=== PATIENT | female | born 1980 | race Hispanic/Latino ===

== ENCOUNTER 2024-03-04 14:51 | Emergency (ER) | payer BC ==
[~2024-03-04] VITALS: Ht 170.2 cm; Wt 142.9 kg
[2024-03-04 15:14] LABS: APPEARANCE,URINE CLOUDY (CLEAR); BILIRUBIN,URINE NEGATIVE (NEGATIVE); COLOR,URINE LIGHT-YELLOW (YELLOW); GLUCOSE, URINE (UA) NEGATIVE (NEGATIVE); KETONES,URINE NEGATIVE (NEGATIVE); LEUKOCYTE ESTERASE ,URINE NEGATIVE Leu/uL (NEGATIVE); NITRATE,URINE NEGATIVE (NEGATIVE); PH,URINE 5.5 (5.0-8.0); PROTEIN,URINE 50 mg/dL (NEGATIVE); UROBILINOGEN,URINE 0.2 mg/dL (0.2-1.0)
[2024-03-04 15:22] VITALS: TEMP 101.1
[2024-03-04] MEDS: acetaMINOPHEN 500 MG TABLET PO ONE (15:22)
[2024-03-04] MEDS: 0.9%NACL 1000ML 1,848 ML IV ONE (15:23)
[2024-03-04 15:24] LABS: BASOPHILS # (AUTO) 0.04 K/uL (0.00-0.20); BASOPHILS % (AUTO) 0.8 % (0.0-5.0); EOSINOPHILS # (AUTO) 0.17 K/uL (0.00-0.70); EOSINOPHILS % (AUTO) 3.4 % (0.0-8.0); HEMATOCRIT 40.7 % (36-48); IMMATURE GRANULOCYTE ABSOLUTE 0.07 K/uL (0-1); LYMPHOCYTES # (AUTO) 1.2 K/uL (1.0-4.8); LYMPHOCYTES % (AUTO) 23.2 % (21.0-51.0); MEAN CORPUSCULAR HEMOGLOBIN 30.8 pg (27.0-33.0); MEAN CORPUSCULAR HGB CONC 34.6 g/dL (32.0-36.0); MEAN CORPUSCULAR VOLUME 88.9 fL (79-99); MONOCYTES # (AUTO) 0.2 K/uL (0.1-1.0); MONOCYTES % (AUTO) 3.8 % (3.0-13.0); NEUTROPHILS # (AUTO) 3.4 K/uL (1.8-7.7); NEUTROPHILS % (AUTO) 67.4 % (40.0-77.0); PLATELET COUNT (AUTO) 261 K/uL (130-400); RED BLOOD CELL COUNT(AUTO) 4.58 MIL/uL (4.00-5.50); RED CELL DISTRIBUTION WIDTH 11.5 % (11.0-15.5); WHITE BLOOD COUNT (AUTO) 5.1 K/uL (4.8-10.8)
[2024-03-04 15:27] LABS: BACTERIA,URINE RARE /HPF (None Seen); MUCUS,URINE RARE LPF (None Seen); SQUAMOUS EPITHELIAL CELL,UR FEW /HPF (0-2)
[2024-03-04 15:33] LABS: POTASSIUM 3.7 mmol/L (3.5-5.1)
--- NOTE | 2024-03-04 15:35 | HMCIMG ---
Exam Type: CHEST 1VW Clinical Information: Sepsis Comparison: None Findings: The lungs are clear of infiltrates. The heart is normal in size. The bony and soft tissue structures of the chest are unremarkable. Impression: Clear lungs.
[2024-03-04 15:38] LABS: ALBUMIN 3.5 g/dL (3.5-5.0); BILIRUBIN,TOTAL 0.5 mg/dL (0.2-1.0); TOTAL PROTEIN, SERUM 8.4 g/dL (6.0-8.3)
--- NOTE | 2024-03-04 15:51 | EKG ---
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
[2024-03-04 16:04] LABS: COVID19 (SARS ANTIGEN RAPID) PRESUMPTIVE NEGATIVE (NEGATIVE)
[2024-03-04 16:14] LABS: INFLUENZA TYPE A NEGATIVE FOR TYPE A (NEGATIVE); INFLUENZA TYPE B NEGATIVE FOR TYPE B (NEGATIVE)
[2024-03-04] MEDS ORDERED: AZIT250T9 PO (16:39)
--- NOTE | 2024-03-04 16:40 | ERN ---
General Chief Complaint: Multiple Complaints Stated Complaint: NUMBNESS,GROIN RASH, ITCHY FEET Time Seen by MD: 15:06 Time Seen by Midlevel: 15:08 Source: patient History of Present Illness Initial Comments 43-year-old female who presents to the ED due to numbness of the hands and arms. Patient describes the numbness as tingling, reports a rash to both feet and arms that resolved. States she initiated with a cough and congestion yesterday but denies further associated symptoms. PMHx DM, HTN, hypercholesterolemia Allergies: Coded Allergies: aspirin (Unverified Allergy, Unknown, 03/04/24) Home Meds Active Scripts Azithromycin (Azithromycin) 250 Mg Tablet, 1 TAB PO AD for 5 Days, #6 TAB 0 Refills 2 the first day followed by 1 for days 2-5 Prov:RAUL CAMPOS 03/04/24 Past Medical History Past Medical History: Diabetes-Type II, High Cholesterol, Hypertension, Other Medical History Other: CELLULITIS Past Surgical History: Other ROS Dictation Constitutional: Negative for fever,chills, and weight loss Eyes: Negative for injury, pain,redness, and discharge ENT: Negative for injury,pain or swelling Cardiovascular: Negative for chest pain, palpitations, and edema Respiratory: Positive for cough Negative for shortness of breath, and wheezing, Abdomen/GI: Negative for abdominal pain, nausea, vomiting, diarrhea, and constip ation Back: Negative for injury and pain : Negative for painful urination, bleeding or discharge MS/Extremity: Upper hands and arms numbness in his Negative for injury and deformity Skin: Negative for rash, and discoloration Neuro: Negative for headache, weakness, numbness, tingling, and seizure Psych: Negative for suicide ideation, homicidal ideation, and hallucinations Physical Exam Physical Exam Dictation General: awake, alert, no acute distress Head/Face: Normocephalic, atraumatic Eyes: normal conjunctiva ENT: oral cavity clear, oral mucosa moist Neck: Normal range of motion Cardiovascular: RRR, normal S1/S2 Respiratory: CTAB, no respiratory distress, No rales or wheezes Abdomen: Soft, non-tender, non-distended, normal bowel sounds, no guarding or rebound. Skin: Warm, dry, normal turgor, no rash MS/Extremity: Pulses equal, no cyanosis, neurovascular intact, FROM Neuro: COAx4, GCS 15, normal gait, normal sensory Psych: Normal behavior, mood, and affect normal Results Laboratory and Microbiology Lab and Micro Result Laboratory Tests Test 03/04/24 15:10 03/04/24 15:15 03/04/24 15:36 Urine Color LIGHT-YELLOW (YELLOW) Urine Appearance CLOUDY (CLEAR) H Urine pH 5.5 (5.0-8.0) Urine Specific [place] 1.020 (1.001-1.031) Urine Protein 50 mg/dL (NEGATIVE) H Urine Glucose (UA) NEGATIVE mg/dL (NEGATIVE) Urine Ketones NEGATIVE mg/dL (NEGATIVE) Urine Occult Blood +- (TRACE) (NEGATIVE) H Urine Nitrate NEGATIVE (NEGATIVE) Urine Bilirubin NEGATIVE mg/dL (NEGATIVE) Urine Urobilinogen 0.2 mg/dL (0.2-1.0) Urine Leukocyte Esterase NEGATIVE Laurie/uL Urine RBC 2-5 /HPF (0-1) H Urine WBC 2-5 /HPF (0-1) H Urine Squamous Epithelial Cells FEW /HPF (0-2) Urine Bacteria RARE /HPF (None Seen) White Blood Count 5.1 K/uL (4.8-10.8) Red Blood Count 4.58 MIL/uL (4.00-5.50) Hemoglobin 14.1 g/dL (12.0-16.0) Hematocrit 40.7 % (36-48) Mean Corpuscular Volume 88.9 fL (79-99) Mean Corpuscular Hemoglobin 30.8 pg (27.0-33.0) Mean Corpuscular Hemoglobin Concent 34.6 g/dL (32.0-36.0) Red Cell Distribution Width 11.5 % (11.0-15.5) Platelet Count 261 K/uL (130-400) Mean Platelet Volume 8.9 fL (7.5-10.5) Immature Granulocyte % (Auto) 1.4 % (0-1) H Neutrophils (%) (Auto) 67.4 % (40.0-77.0) Lymphocytes (%) (Auto) 23.2 % (21.0-51.0) Monocytes (%) (Auto) 3.8 % (3.0-13.0) Eosinophils (%) (Auto) 3.4 % (0.0-8.0) Basophils (%) (Auto) 0.8 % (0.0-5.0) Neutrophils # (Auto) 3.4 K/uL (1.8-7.7) Lymphocytes # (Auto) 1.2 K/uL (1.0-4.8) Monocytes # (Auto) 0.2 K/uL (0.1-1.0) Eosinophils # (Auto) 0.17 K/uL (0.00-0.70) Basophils # (Auto) 0.04 K/uL (0.00-0.20) Absolute Immature Granulocyte (auto 0.07 K/uL (0-1) Nucleated Red Blood Cells 0.0 % (0.0-0.19) Sodium Level 138 mmol/L (136-145) Potassium Level 3.7 mmol/L (3.5-5.1) Chloride Level 101 mmol/L (101-111) Carbon Dioxide Level 30 mmol/L (21-32) Blood Urea Nitrogen 13 mg/dL (7-18) Creatinine 1.0 mg/dL (0.5-1.0) Glomerular Filtration Rate Calc 72 mL/min (>90) Random Glucose 120 mg/dL (70-105) H Lactic Acid Level 1.9 mmol/L (0.8-2.5) Total Calcium 9.0 mg/dL (8.5-10.1) Total Bilirubin 0.5 mg/dL (0.2-1.0) Aspartate Amino Transf (AST/SGOT) 21 U/L (10-37) Alanine Aminotransferase (ALT/SGPT) 24 U/L (12-78) Alkaline Phosphatase 138 U/L (50-136) H Total Protein 8.4 g/dL (6.0-8.3) H Albumin 3.5 g/dL (3.5-5.0) Influenza Type A Antigen NEGATIVE FOR TYPE A Influenza Type B Antigen NEGATIVE FOR TYPE B SARS-CoV-2 Antigen (Rapid) PRESUMPTIVE NEGATIVE Labs Reviewed?: Yes EKG/XRAY/US/CT/MRI EKG Comment Date: 03/04/2024 Time: 15:44 Rate:102 EKG interpretation: Tachycardia, no STEMI Reviewed by ED Attending X-RAY Comment REASON: Sepsis ORDERING PHYSICIAN: RAUL CAMPOS PROCEDURE: CXR1VW - CHEST 1VW Exam Type: CHEST 1VW Clinical Information: Sepsis Comparison: None Findings: The lungs are clear of infiltrates. The heart is normal in size. The bony and soft tissue structures of the chest are unremarkable. Impression: Clear lungs. MDM MDM: Differential diagnosis: URI, influenza, viral illness, hyperglycemia Rationale: 43-year-old female who presents to the ED due to numbness of the hands and arms. Patient describes the numbness as tingling, reports a rash to both feet and arms that resolved. States she initiated with a cough and congestion yesterday but denies further associated symptoms. PMHx DM, HTN, hypercholesterolemia Per physical examination patient is in no acute distress, neurologically intact with normal range of motion, sensory neurovascularly intact, and no rash noted. Upon arrival patient triggered sepsis due to fever and elevated heart rate. Patient received IV fluids, and acetaminophen in the ED. labs obtained are nonspecific. UA is negative for urinary tract infection. EKG within normal limits. Based on patient's symptoms and chest x-ray diagnosis URI therefore Z- Fitz prescribed for outpatient treatment. Patient was educated on findings and diagnosis. Advised to follow up with PCP. Return to the ED if any worsening symptoms. Patient verbalized understanding. Patient is stable for discharge. There are no social concerns with this patient. I independently interpreted the test that were performed, results were reviewed by me and considered findings on radiology if ordered. Medical management and examination interpretation discussions were had by me with other qualified healthcare professionals as indicated for the patient's care. ED Course Orders Procedure Category Date Status Time Cbc With Differential LAB 03/04/24 Complete 15:06 Comprehensive LAB 03/04/24 Complete Metabolic Panel 15:06 Urinalysis LAB 03/04/24 Complete W/Microscopic 15:06 Lactic Acid LAB 03/04/24 Complete 15:06 Chest 1vw RAD 03/04/24 Resulted 15:06 Acetaminophen 500mg PHA 03/04/24 Complete Tab (Tylenol 500mg T 15:30 0.9%Nacl 1000ml (Ns PHA 03/04/24 In Process 1000ml) 15:30 Covid19 (Sars Antigen LAB 03/04/24 Complete Rapid) 15:32 12 Lead Ekg Tracing- EKG 03/04/24 Resulted Technical 15:34 Influenza Type A & B, LAB 03/04/24 Complete Rapid 15:36 Current Medications Medications (Trade) Dose Ordered Sig/Jaskaran Route PRN Reason Start Time Stop Time Status Last Admin Dose Admin Acetaminophen (TYLenol 500MG TAB) 1,000 mg ONCE ONCE PO 03/04/24 15:30 03/04/24 15:31 DC 03/04/24 15:22 Sodium Chloride 1,848 ml @ 616 mls/hr ONCE ONCE IV 03/04/24 15:30 03/04/24 18:29 03/04/24 15:23 Vital Signs Date Time Temp Pulse Resp B/P (MAP) Pulse Ox O2 Delivery O2 Flow Rate FiO2 03/04/24 16:43 99.5 104 20 112/63 98 Room Air* 0 21 03/04/24 15:22 101.1 03/04/24 14:54 101.1 128 20 153/85 99 Room Air 0 DX & DISP Disposition: Discharge Departure Impression: Primary Impression: URI (upper respiratory infection) Additional Impression: URI with cough and congestion Condition: Stable Scripts Azithromycin (Azithromycin) 250 Mg Tablet 1 TAB PO AD for 5 Days, #6 TAB 0 Refills 2 the first day followed by 1 for days 2-5 Prov: RAUL CAMPOS 03/04/24 Additional Instructions: Discharge home. Rest. Follow up with primary care DrLili in 24 hours. Return to the ER for any acute changes or worsening symptoms. If any medications were prescribed take as directed. Okay to continue home medications unless otherwise discussed during your visit in the emergency room today. Patient was also advised to follow-up with primary care physician in 1 to 2 days for continued monitoring. Referrals: LAURA ABREU SUE (PCP) I participated in the following activities of this patient's care: For this patient encounter, I reviewed the PA or HANDKERCHIEF FOLDER documentation, treatment plan, and medical decision making. I did not have [id number] time with this patient. I will sign as the reviewing DrLili And agree with the treatment plan and disposition. RAUL CAMPOS Mar 04, 2024 16:40
[2024-03-04 16:43] VITALS: BP 112/63; PULSE 104; RESP 20; TEMP 99.5; O2SAT 98
== END 2024-03-04 16:50 | disposition home or self-care (01) ==
LOC: EDH 14:51
DX: J06.9 Acute upper respiratory infection, unspecified (principal); E11.9 Type 2 diabetes mellitus without complications; E78.00 Pure hypercholesterolemia, unspecified; I10 Essential (primary) hypertension; Z20.822 Contact with and (suspected) exposure to COVID-19; Z79.899 Other long term (current) drug therapy; Z88.6 Allergy status to analgesic agent; Z98.890 Other specified postprocedural states
CPT/HCPCS: 99284; 96360; 71045; 87426; 80053; 85025; 87804 ×2; 83605; 81001; 36415; 93005; J7030